=== PATIENT | male | born 1950 | race African-American/Black ===

== ENCOUNTER 2024-03-26 13:25 | Emergency (ER) | payer MEDICARE, SELFPAY ==
[2024-03-26 13:50] VITALS: BP 138/71; PULSE 79; RESP 20; TEMP 37.1; O2SAT 99
--- NOTE | 2024-03-26 14:05 | ED_ITS ---
HPI - Extremity Problem General Chief complaint: Extremity Problem,Nontraumatic Stated complaint: right foot swollen Time Seen by Provider: 03/26/24 14:05 Source: patient, RN notes reviewed and old records reviewed Mode of arrival: ambulatory Limitations: no limitations History of Present Illness HPI Narrative: 73-year-old male presents to the [facility] with a swollen right foot for the last 3-4 days. Pain, can no longer walk. +1 one pulse noted. Erythema noted from ankle to tips of toes circumferential. Onset (ago): day(s) (3-4) Related Data Home Medications ?Medication ?Instructions ?Recorded ?Confirmed ?Last Taken ?Type furosemide 40 mg tablet mg 03/26/24 Unknown History hydralazine 25 mg tablet mg 03/26/24 Unknown History metoprolol succinate 50 mg mg PO 03/26/24 Unknown History tablet,extended release 24 hr omeprazole 20 mg capsule,delayed mg 03/26/24 Unknown History release potassium chloride 10 mEq meq PO 03/26/24 Unknown History tablet,extended release sacubitril 49 mg-valsartan 51 mg tablet 03/26/24 Unknown History tablet (Entresto) spironolactone 25 mg tablet mg 03/26/24 Unknown History tramadol 50 mg tablet mg 03/26/24 Unknown History warfarin 5 mg tablet mg 03/26/24 Unknown History zolpidem 5 mg tablet mg 03/26/24 Unknown History Review of Systems Review of Systems: All systems reviewed & are unremarkable except as noted in HPI and below Constitutional: Constitutional: Reports no additional constitutional complaints ENT: Reports system reviewed and no additional complaints, except as documented Cardiovascular: Cardiovascular: Reports no additional cardiovascular complaints, Denies chest pain and Denies dyspnea Respiratory: Respiratory: Reports no additional respiratory complaints, Denies chest congestion, Denies cough and Denies dyspnea Musculoskeletal: Musculoskeletal: Reports as per HPI and Reports abnormal gait Integumentary/Breasts: Skin/Breast: Reports system reviewed and no additional complaints, except as docu [facility] Past Medical History Medical History (Updated 03/26/24 @ 14:31 by Cassia Valiente APRN) H/O gastroesophageal reflux (GERD) Hypertension Comments At the time of my signature, I reviewed and agree with the nursing past medical, surgical, social, and family history. There is no relevant family history pertinent to the patient complaint. Exam Const: General: cooperative, well developed, alert, ill appearing chronically, uncomfortable, well nourished and other (pain) Nutritional Appearance: well nourished Orientation/consciousness: patient oriented x3 Limitations: no limitations HENMT: Head: normal to inspection Face and sinus: normal facial exam and face symmetric Neck: Neck: normal visual inspection and full ROM Chest: Chest palpation & inspection: normal inspection of the chest Resp: Effort & Inspection: normal respiratory effort and able to speak in complete sentences Cardio: Rate: regular rate Neuro: General: patient oriented x3, gait normal, moves all extremities and no meningeal signs Cognition (Neuro): normal cognition Speech: normal speech Gait exam (Neuro): Shuffling gait present and Other gait observations present (pain to the right foot. placed in wheel chair) Extrem: General: normal to inspection, full ROM, capillary refill normal and normal gait Right lower extremity: foot Details: abnormal ROM of toe Details: pain with active ROM, warmth (Circumferential, with erythema circumferential), edema (+2 generalized from ankle to tips of toe) and vascular exam Details: dorsalis pedis pulse present (Plus one) and abnormal capillary refill (Delayed) Location: of the entire foot; no puncture wound Psych: Appearance: grossly normal and well kempt Mental Status: mental status grossly normal Speech and movement: Normal speech and movement present and Clear speech present Affect: normal affect Attitude: cooperative Course Course Level of Care: Express Care Visit Vital Signs Vital signs: Vital Signs Temperature 98.8 F 03/26/24 13:50 Pulse Rate 79 03/26/24 13:50 Respiratory Rate 20 03/26/24 13:50 Blood Pressure 138/71 03/26/24 13:50 Pulse Oximetry 99 03/26/24 13:50 Temperature 98.8 F 03/26/24 13:50 Pulse Rate 79 03/26/24 13:50 Respiratory Rate 20 03/26/24 13:50 Blood Pressure 138/71 03/26/24 13:50 Pulse Oximetry 99 03/26/24 13:50 Reviewed Transfer Transfered to: [facility] Transportation: Other (POV, declined EMS states that his granddaughter will drive him) Transfer rationale: Patient with a significant medical history, presents with 3-4 day history of increasing pain, swelling, unable to walk on his foot due to pain. Denies any injury. Patient with decreased pulse, delayed capillary refill. Unable to do an appropriate, complete workup sending for higher level of care Concern for blood clot, circumferential cellulitis Accepting physician: Spoke with Joanna Yates RN. Dr. Valente excepting MDM - Extremity (Nontraumatic) MDM Narrative Medical decision making narrative: Patient sitting very uncomfortably in exam room due to pain of the right foot. Swelling, erythema noted. Sending for higher level of care to rule out DVT, cellulitis, gout Transferrin for structures reviewed with patient by both and P and RN to go directly to the ER. Declined EMS will have granddaughter drive him All questions have been answered, and the patient deny any further questions. Some parts of this dictation were generated by voice recognition software and may contain typographical and/or grammatical inaccuracies. Differential Diagnosis Differential diagnosis: Likely gout, cellulitis, superficial thrombophlebitis, deep venous thrombosis of upper extremity and lower extremity edema Critical Care Time Critical Care Time Critical Care Time: No Discharge Plan Discharge Clinical Impression: Swelling of right foot Patient Disposition: Acute Care Hospital Condition: Stable Patient Language: Polish Prescriptions: No Action furosemide 40 mg tablet metoprolol succinate 50 mg tablet extended release 24 hr PO hydralazine 25 mg tablet potassium chloride 10 mEq tablet extended release PO tramadol 50 mg tablet spironolactone 25 mg tablet warfarin 5 mg tablet omeprazole 20 mg capsule,delayed release(DR/EC) zolpidem 5 mg tablet sacubitril-valsartan [Entresto] 49-51 mg tablet Follow-up/Referrals: Franklin,MD Borges ([place]) [Primary Care Provider] -
== END 2024-03-26 14:18 | disposition short-term general hospital (02) ==
PROVIDERS: Emergency Provider Nurse Practitioner; PCP Internal Medicine
DX: M79.89 Other specified soft tissue disorders (principal); I10 Essential (primary) hypertension; Z79.899 Other long term (current) drug therapy
CPT/HCPCS: 99212; G0463